=== PATIENT | male | born 1960 | race Caucasian/White ===

== ENCOUNTER 2017-04-09 18:01 | Inpatient (IN) | payer MEDICARE ==
[~2017-04-09] VITALS: Ht 185.4 cm; Wt 135.2 kg
[~2017-04-09 18:01] MED LIST: ALBU2.5V13 IH; ALBU6.7H IH; AMLO10TA80 PO; BECL8.7A6 IH; BECL8.7A6 INH; FURO40TA5 PO; HUMALOG INSULIN SUBCUT/PO; INSU3INS6 SQ; INSU3INS6 SUBCUT; LIP40 PO; LOSA100T14 PO; METF10002 PO; POTA10TA15 PO
[2017-04-09 19:00] LABS: BASOPHILS % 0.7 % (0.0-2.0); EOSINOPHILS % 0.2 % (0.0-5.0); HEMATOCRIT. 42.2 % (42.0-52.0); HEMOGLOBIN. 14.4 g/dL (14.0-18.0); LYMPHOCYTES % 10.5 % (20.0-50.0); MEAN CORPUSCULAR HEMOGLOBIN 28.1 pg (28.0-32.0); MEAN CORPUSCULAR VOLUME 82.7 fL (80.0-94.0); MEAN PLATELET VOLUME 9.6 fl (7.4-10.4); NEUTROPHILS % 82.6 % (40.0-76.0); PLATELET 173 x1000/uL (130-400); RED BLOOD CELL COUNT 5.11 mill/uL (4.7-6.1); RED CELL DISTRIBUTION WIDTH 13.9 % (11.6-14.6)
[2017-04-09 19:07] LABS: INR 0.9; PROTHROMBIN TIME 9.8 sec (9.4-11.6)
[2017-04-09 19:13] LABS: CARBON DIOXIDE 27 mEq/L (21-32); CHLORIDE 94 mEq/L (98-107)
[2017-04-09 19:17] LABS: TROPONIN I < 0.02 ng/mL (0.00-0.04)
[2017-04-09 20:14] LABS: BG BASE EXCESS -3.1 mmol/L (-2.0-2.0); BG DEOXYHEMOGLOBIN 2.6 % (0.0-5.0); BG FRACTION INSPIRED OXYGEN 28; BG HCO3 ACT 20.1 mmol/L (22.0-26.0); BG METHEMOGLOBIN 0.4 % (0.0-1.5); BG OXYGEN SATURATION 97.4 % (92.0-98.5); BG PCO2 31.4 mmHg (35.0-45.0); BG PH 7.425 (7.350-7.450); BG PO2 89.6 mmHg (75.0-100.0); BG SAMPLE SITE RIGHT RADIAL; BG TOTAL HEMOGLOBIN 15.2 g/dL (12.0-18.0); BG VENT MODE NASAL CANNULA
[2017-04-10] MEDS ORDERED: LEVOFLOXACIN 250MG PREMIX 50 ML IV ONE (00:15)
[2017-04-10] MEDS ORDERED: MORPHINE SULFATE 4 MG/ML CPJ (NOT FOR IM USE) IV ONE (00:15)
[2017-04-10] MEDS ORDERED: INSULIN REGULAR (HUMULIN R) 300UNITS/3ML SUBCUT ONE ×2 (00:15)
[2017-04-10 01:25] VITALS: BP 121/72
[2017-04-10] MEDS ORDERED: ACETAMINOPHEN 650MG/20.3ML UDC PO PRN (03:15)
[2017-04-10] MEDS ORDERED: INSULIN LISPRO 100 UNITS/ML SUBCUT SCH (03:15)
[2017-04-10] MEDS ORDERED: DEXTROSE 50% WATER 50ML SYRINGE IV PRN (03:15)
[2017-04-10] MEDS ORDERED: CLONIDINE 0.1MG TABLET PO PRN (03:15)
[2017-04-10] MEDS ORDERED: TEMAZEPAM 15MG CAPSULE PO PRN (03:15)
[2017-04-10 04:00] VITALS: BP 122/58
[2017-04-10] MEDS: ENOXAPARIN 40MG/0.4ML SYR SUBCUT SCH (04:33)
[2017-04-10] MEDS: SODIUM CHLORIDE 0.45% 1,000 ML IV SCH ×3 (04:37→21:10)
[2017-04-10] MEDS: INSULIN LISPRO 100 UNITS/ML SUBCUT SCH ×5 (04:49→21:05)
[2017-04-10] MEDS: IPRATROPIUM/ALBUTEROL 0.5-3(2.5)MG/3ML NEB HHN SCH ×5 (04:50→20:51)
[2017-04-10] MEDS: PANTOPRAZOLE 40MG DR TABLET PO SCH (07:47)
[2017-04-10] MEDS: BLOOD SUGAR DIAGNOSTIC STRIP TEST SCH ×4 (07:56→20:55)
[2017-04-10 08:00] VITALS: BP 110/56
[2017-04-10] MEDS ORDERED: ENOXAPARIN 40MG/0.4ML SYR SUBCUT SCH (09:00)
[2017-04-10 12:00] VITALS: BP 121/62
[2017-04-10] MEDS: INSULIN DETEMIR UD 100 UNITS/ML SYR SUBCUT SCH ×2 (13:26→20:59)
[2017-04-10 16:10] VITALS: BP 115/65
[2017-04-10] MEDS ORDERED: INSULIN LISPRO 100 UNITS/ML SUBCUT NR (16:15)
[2017-04-10] MEDS ORDERED: INSULIN DETEMIR UD 100 UNITS/ML SYR SUBCUT NR (16:30)
[2017-04-10 20:00] VITALS: BP 120/71
[2017-04-11] VITALS: BP 99/53
[2017-04-11] MEDS: BLOOD SUGAR DIAGNOSTIC STRIP TEST SCH ×6 (00:26→20:00)
[2017-04-11] MEDS: INSULIN LISPRO 100 UNITS/ML SUBCUT SCH ×6 (00:31→21:49)
[2017-04-11] MEDS: IPRATROPIUM/ALBUTEROL 0.5-3(2.5)MG/3ML NEB HHN SCH ×6 (01:02→20:52)
[2017-04-11 04:00] VITALS: BP 103/61
[2017-04-11] MEDS: ENOXAPARIN 40MG/0.4ML SYR SUBCUT SCH (06:34)
[2017-04-11 08:00] VITALS: BP 145/90
[2017-04-11] MEDS: PANTOPRAZOLE 40MG DR TABLET PO SCH (09:02)
[2017-04-11] MEDS: SODIUM CHLORIDE 0.45% 1,000 ML IV SCH (09:23)
[2017-04-11] MEDS: INSULIN DETEMIR UD 100 UNITS/ML SYR SUBCUT SCH ×2 (10:23→22:37)
[2017-04-11] MEDS: SODIUM CHLORIDE 0.9% 1,000 ML IV SCH (11:45)
[2017-04-11 12:00] VITALS: BP 130/77
[2017-04-11 13:34] LABS: BASOPHILS % 0.4 % (0.0-2.0); EOSINOPHILS % 1.3 % (0.0-5.0); HEMATOCRIT. 39.7 % (42.0-52.0); HEMOGLOBIN. 13.5 g/dL (14.0-18.0); LYMPHOCYTES % 31.3 % (20.0-50.0); MEAN CORPUSCULAR HEMOGLOBIN 28.2 pg (28.0-32.0); MEAN CORPUSCULAR VOLUME 82.7 fL (80.0-94.0); MEAN PLATELET VOLUME 9.3 fl (7.4-10.4); MONOCYTES % 10.8 % (2.0-8.0); NEUTROPHILS % 56.2 % (40.0-76.0); PLATELET 162 x1000/uL (130-400); RED CELL DISTRIBUTION WIDTH 13.9 % (11.6-14.6)
[2017-04-11 14:12] LABS: CARBON DIOXIDE 26 mEq/L (21-32); CHLORIDE 100 mEq/L (98-107)
[2017-04-11] MEDS: ASPIRIN 81MG TABLET PO SCH (15:56)
[2017-04-11 16:57] VITALS: BP 129/87
[2017-04-11] MEDS: PIPERACILLIN/TAZ 3.375G PREMIX 50 ML IV SCH ×2 (17:24→21:46)
[2017-04-11 20:00] VITALS: BP 133/85
[2017-04-12] VITALS: BP 130/75
[2017-04-12] MEDS: IPRATROPIUM/ALBUTEROL 0.5-3(2.5)MG/3ML NEB HHN SCH ×3 (02:14→12:08)
[2017-04-12 04:00] VITALS: BP 122/70
[2017-04-12] MEDS: ENOXAPARIN 40MG/0.4ML SYR SUBCUT SCH (05:52)
[2017-04-12] MEDS: PIPERACILLIN/TAZ 3.375G PREMIX 50 ML IV SCH (05:52)
[2017-04-12] MEDS ORDERED: BLOOD SUGAR DIAGNOSTIC STRIP TEST SCH (07:40)
[2017-04-12 08:00] VITALS: BP 124/66
[2017-04-12] MEDS ORDERED: FAMOTIDINE 20MG TABLET PO SCH (09:00)
[2017-04-12] MEDS: INSULIN LISPRO 100 UNITS/ML SUBCUT SCH ×2 (10:12→13:50)
[2017-04-12] MEDS: INSULIN DETEMIR UD 100 UNITS/ML SYR SUBCUT SCH (10:22)
[2017-04-12] MEDS: ASPIRIN 81MG TABLET PO SCH (11:07)
[2017-04-12] MEDS: SODIUM CHLORIDE 0.9% 1,000 ML IV SCH (11:08)
[2017-04-12 12:00] VITALS: BP 124/64
[2017-04-12] MEDS ORDERED: POTASSIUM CHLORIDE 20MEQ TABLET SR PO SCH (13:15)
[2017-04-12 15:01] VITALS: BP 124/66
[2017-04-13] MEDS ORDERED: ENOXAPARIN 30MG/0.3ML SYR SUBCUT SCH (09:00)
== END 2017-04-12 15:40 | disposition home or self-care (01) | DRG 637 ==
LOC: ER 18:01 → INTOOBSV 23:48 → OBSVTOIN 23:48 → 7WST 23:48 → ENRESERV 23:54
PROVIDERS: ADMIT Internal Medicine; ATTEND Internal Medicine
DX: E11.00 Type 2 diabetes mellitus with hyperosmolarity without nonketotic hyperglycemic-hyperosmolar coma (NKHHC) (principal); J18.9 Pneumonia, unspecified organism; I11.0 Hypertensive heart disease with heart failure; E11.21 Type 2 diabetes mellitus with diabetic nephropathy; I50.9 Heart failure, unspecified; J44.0 Chronic obstructive pulmonary disease with (acute) lower respiratory infection; E87.8 Other disorders of electrolyte and fluid balance, not elsewhere classified; E87.1 Hypo-osmolality and hyponatremia; J44.1 Chronic obstructive pulmonary disease with (acute) exacerbation; E66.9 Obesity, unspecified; Z79.4 Long term (current) use of insulin; J45.909 Unspecified asthma, uncomplicated; Z99.81 Dependence on supplemental oxygen; Z79.899 Other long term (current) drug therapy
CPT/HCPCS: 36415; 36600; 71010; 71250; 80053; 82010; 82375; 82805; 82962; 83036; 83880; 84443; 84484; 85025; 85610; 85651; 87040; 87086; 93005; 94640; 94660; 96365; 96372; 99285; J1650; J1815; J1956; J2543; J7030; J7620

== ENCOUNTER 2019-08-15 15:37 | Inpatient (IN) | payer MEDICARE ==
[~2019-08-15] VITALS: Ht 185.4 cm; Wt 145.1 kg
[~2019-08-15 15:37] MED LIST changes: -ALBU6.7H IH; +ALBU6.7H11 IH; -LOSA100T14 PO; +LOSA100T32 PO; +METF-416 PO; -METF10002 PO
[2019-08-15] MEDS ORDERED: METHYLPREDNISOLONE SOD SUCC 125 MG/2 ML VIAL IV STA (16:25)
[2019-08-15] MEDS ORDERED: ALBUTEROL (0.083%) 2.5MG/3ML NEB HHN STA (16:25)
[2019-08-15] MEDS ORDERED: IPRATROPIUM BROMIDE (0.02%) 0.5MG/2.5ML NEB HHN STA (16:25)
[2019-08-15 17:10] LABS: BASOPHILS % 0.4 % (0.0-2.0); EOSINOPHILS % 1.2 % (0.0-5.0); HEMATOCRIT. 37.6 % (42.0-52.0); HEMOGLOBIN. 12.7 g/dL (14.0-18.0); MEAN CORPUSCULAR HEMOGLOBIN 28.5 pg (28.0-32.0); MEAN CORPUSCULAR VOLUME 84.6 fL (80.0-94.0); MEAN PLATELET VOLUME 8.7 fl (7.4-10.4); MONOCYTES % 7.9 % (2.0-8.0); NEUTROPHILS % 66.5 % (40.0-76.0); PLATELET 207 x1000/uL (130-400); RED BLOOD CELL COUNT 4.45 mill/uL (4.7-6.1); RED CELL DISTRIBUTION WIDTH 13.5 % (11.6-14.6)
[2019-08-15 17:18] LABS: CHLORIDE 108 mEq/L (98-107)
[2019-08-15] MEDS ORDERED: NITROGLYCERIN 0.4MG TABLET SL SL PRN (17:30)
[2019-08-15] MEDS ORDERED: FUROSEMIDE 40MG/4ML VIAL IV ONE (17:30)
[2019-08-15] MEDS ORDERED: NITROGLYCERIN OINT 1GM/INCH UDPKT TD ONE (17:30)
[2019-08-15] MEDS ORDERED: ASPIRIN 81MG TABLET PO ONE (17:30)
[2019-08-16] MEDS ORDERED: INSULIN LISPRO 100 UNITS/ML SUBCUT NR (01:00)
[2019-08-16] MEDS ORDERED: CLONIDINE 0.1MG TABLET PO PRN (01:45)
[2019-08-16] MEDS ORDERED: HYDROCODONE/ACETAMINOPHEN 5/325MG TABLET PO PRN (01:45)
[2019-08-16] MEDS ORDERED: ENOXAPARIN 40MG/0.4ML SYR SUBCUT SCH (01:45)
[2019-08-16] MEDS ORDERED: LEVOFLOXACIN 500MG PREMIX 100 ML IV NR (02:30)
[2019-08-16 06:47] LABS: CREATINE KINASE 269 IU/L (39-308)
[2019-08-16 06:48] LABS: CREATINE KINASE MB FRACTION 1.3 ng/mL (0.5-3.6)
[2019-08-16 10:00] VITALS: BP 131/78
[2019-08-16] MEDS ORDERED: INSULIN GLARGINE UD 100 UNITS/ML SYR SUBCUT SCH (10:00)
[2019-08-16 12:00] VITALS: BP 136/82
[2019-08-16] MEDS ORDERED: DEXTROSE 50% WATER 50ML SYRINGE IV PRN (12:00)
[2019-08-16] MEDS ORDERED: LOSA25TA26 MT (12:07)
[2019-08-16] MEDS ORDERED: LIDOCAINE HCL/PF 1% 2ML VIAL ONE (12:11)
[2019-08-16] MEDS: ASPIRIN 81MG EC TABLET PO SCH (12:39)
[2019-08-16] MEDS: METHYLPREDNISOLONE SOD SUCC 40 MG/ML VIAL IV SCH ×2 (12:39→21:03)
[2019-08-16] MEDS: FUROSEMIDE 40MG/4ML VIAL IV SCH (12:39)
[2019-08-16] MEDS: ENOXAPARIN 40MG/0.4ML SYR SUBCUT SCH ×2 (12:40→21:04)
[2019-08-16] MEDS: POTASSIUM CHLORIDE 20MEQ TABLET SR PO SCH (12:40)
[2019-08-16] MEDS: INSULIN LISPRO 100 UNITS/ML SUBCUT SCH ×3 (13:07→21:03)
[2019-08-16] MEDS: INSULIN GLARGINE UD 100 UNITS/ML SYR SUBCUT SCH ×2 (13:08→21:46)
[2019-08-16] MEDS: IPRATROPIUM/ALBUTEROL 0.5-3(2.5)MG/3ML NEB HHN SCH ×2 (14:53→21:00)
[2019-08-16 16:00] VITALS: BP 140/88
[2019-08-16] MEDS: BLOOD SUGAR DIAGNOSTIC STRIP TEST SCH ×2 (16:45→20:53)
[2019-08-16 17:14] LABS: CREATINE KINASE 307 IU/L (39-308)
[2019-08-16 17:17] LABS: CREATINE KINASE MB FRACTION 2.1 ng/mL (0.5-3.6)
[2019-08-16] MEDS ORDERED: GUAIFENESIN 200MG/10ML SUGAR FREE UDC PO PRN (17:30)
[2019-08-16] MEDS ORDERED: LORAZEPAM 2MG/ML CPJ IV PRN (17:30)
[2019-08-16] MEDS ORDERED: DIPHENHYDRAMINE 50MG/ML VIAL IV PRN (17:30)
[2019-08-16] MEDS ORDERED: IPRATROPIUM/ALBUTEROL 0.5-3(2.5)MG/3ML NEB HHN PRN (17:30)
[2019-08-16] MEDS ORDERED: BISACODYL 10MG SUPP PR PRN (17:30)
[2019-08-16 18:07] LABS: HEMATOCRIT 40.1 % (42.0-52.0); HEMOGLOBIN 13.5 g/dL (14.0-18.0); MEAN CORPUSCULAR HEMOGLOBIN 28.4 pg (28.0-32.0); MEAN CORPUSCULAR VOLUME 84.7 fL (80.0-94.0); PLATELET 244 x1000/uL (130-400); RED BLOOD CELL COUNT 4.74 mill/uL (4.7-6.1); RED CELL DISTRIBUTION WIDTH 13.3 % (11.6-14.6)
[2019-08-16 18:09] LABS: CHLORIDE 104 mEq/L (98-107)
[2019-08-16 18:17] LABS: BG BASE EXCESS 1.5 mmol/L (-2.0-2.0); BG CARBOXYHEMOGLOBIN 1.2 % (0.5-1.5); BG DEOXYHEMOGLOBIN 5.4 % (0.0-5.0); BG FRACTION INSPIRED OXYGEN 21; BG HCO3 ACT 25.3 mmol/L (22.0-26.0); BG METHEMOGLOBIN 0.1 % (0.0-1.5); BG OXYGEN SATURATION 94.5 % (92.0-98.5); BG OXYHEMOGLOBIN 93.3 % (94.0-97.0); BG PCO2 37.3 mmHg (35.0-45.0); BG PH 7.449 (7.350-7.450); BG PO2 69.8 mmHg (75.0-100.0); BG SAMPLE SITE RIGHT RADIAL; BG VENT MODE ROOM AIR
[2019-08-16 18:28] LABS: PROTHROMBIN TIME 10.3 sec (9.6-11.0)
[2019-08-16 20:00] VITALS: BP 190/107
[2019-08-16] MEDS: BUDESONIDE 0.5MG/2ML NEB HHN SCH (21:00)
[2019-08-16] MEDS ORDERED: LEVOFLOXACIN 500MG PREMIX 100 ML IV SCH (21:00)
[2019-08-17] VITALS: BP 178/98
[2019-08-17] MEDS: IPRATROPIUM/ALBUTEROL 0.5-3(2.5)MG/3ML NEB HHN SCH ×3 (01:19→14:53)
[2019-08-17] MEDS ORDERED: LEVOFLOXACIN 500MG PREMIX 100 ML IV SCH (01:45)
[2019-08-17 02:26] LABS: CLARITY URINE CLEAR (CLEAR); COLOR URINE YELLOW (YELLOW); KETONES URINE NEGATIVE (NEGATIVE); LEUKOCYTE ESTERASE URINE NEGATIVE (NEGATIVE); NITRITE URINE NEGATIVE (NEGATIVE); OCCULT BLOOD URINE NEGATIVE (NEGATIVE); PH URINE 5.5 (4.5-8.0); PROTEIN URINE TRACE (NEGATIVE); SPECIFIC GRAVITY URINE 1.033 (1.005-1.030)
[2019-08-17 04:00] VITALS: BP 165/87
[2019-08-17] MEDS ORDERED: CLONIDINE 0.1MG TABLET PO NR (04:45)
[2019-08-17 05:45] VITALS: BP 141/80
[2019-08-17] MEDS: METHYLPREDNISOLONE SOD SUCC 40 MG/ML VIAL IV SCH (06:14)
[2019-08-17] MEDS: INSULIN LISPRO 100 UNITS/ML SUBCUT SCH ×2 (06:15→13:28)
[2019-08-17] MEDS: BLOOD SUGAR DIAGNOSTIC STRIP TEST SCH ×2 (06:20→11:45)
[2019-08-17] MEDS ORDERED: CLONIDINE 0.2MG TABLET PO PRN (07:45)
[2019-08-17 07:48] LABS: CHLORIDE 106 mEq/L (98-107)
[2019-08-17 07:57] LABS: BASOPHILS % 0.2 % (0.0-2.0); HEMATOCRIT. 35.1 % (42.0-52.0); LYMPHOCYTES % 18.5 % (20.0-50.0); MEAN CORPUSCULAR VOLUME 84.6 fL (80.0-94.0); MEAN PLATELET VOLUME 8.9 fl (7.4-10.4); MONOCYTES % 5.5 % (2.0-8.0); NEUTROPHILS % 75.8 % (40.0-76.0); PLATELET 218 x1000/uL (130-400); RED BLOOD CELL COUNT 4.15 mill/uL (4.7-6.1); RED CELL DISTRIBUTION WIDTH 13.4 % (11.6-14.6)
[2019-08-17 08:00] VITALS: BP 153/88
[2019-08-17 08:17] LABS: LDL CHOLESTEROL 128 mg/dL (5-100)
[2019-08-17 08:18] LABS: T4 FREE 1.04 ng/dL (0.76-1.46)
[2019-08-17 08:20] LABS: HDL CHOLESTEROL 39 mg/dL (40-59)
[2019-08-17] MEDS: BUDESONIDE 0.5MG/2ML NEB HHN SCH (08:41)
[2019-08-17] MEDS: FUROSEMIDE 40MG/4ML VIAL IV SCH (09:57)
[2019-08-17] MEDS: ASPIRIN 81MG EC TABLET PO SCH (09:57)
[2019-08-17] MEDS: POTASSIUM CHLORIDE 20MEQ TABLET SR PO SCH (09:57)
[2019-08-17] MEDS: ENOXAPARIN 40MG/0.4ML SYR SUBCUT SCH (09:58)
[2019-08-17] MEDS: INSULIN GLARGINE UD 100 UNITS/ML SYR SUBCUT SCH (09:59)
[2019-08-17] MEDS ORDERED: ALBU05 NEB (15:51)
[2019-08-17] MEDS ORDERED: CLON0.1T PO (15:51)
[2019-08-17] MEDS ORDERED: FURO-151 MT (15:51)
[2019-08-17] MEDS ORDERED: P20 PO (15:51)
[2019-08-17] MEDS ORDERED: LEVO500T2 MT (15:51)
[2019-08-17 16:17] VITALS: BP 155/92
== END 2019-08-17 16:55 | disposition home or self-care (01) | DRG 202 ==
LOC: ER 15:37 → 5WST 17:58 → EDBEDREQ 18:23 → EDBEDREQTM 18:23 → ENRESERV 08-16 07:41
PROVIDERS: ADMIT Internal Medicine; ATTEND Internal Medicine
DX: J45.901 Unspecified asthma with (acute) exacerbation (principal); J44.1 Chronic obstructive pulmonary disease with (acute) exacerbation; J91.8 Pleural effusion in other conditions classified elsewhere; E66.2 Morbid (severe) obesity with alveolar hypoventilation; Z68.41 Body mass index [BMI] 40.0-44.9, adult; D64.9 Anemia, unspecified; E11.65 Type 2 diabetes mellitus with hyperglycemia; E86.0 Dehydration; I34.0 Nonrheumatic mitral (valve) insufficiency; J06.9 Acute upper respiratory infection, unspecified; E87.6 Hypokalemia; I11.0 Hypertensive heart disease with heart failure; J84.10 Pulmonary fibrosis, unspecified; I50.9 Heart failure, unspecified; Z79.84 Long term (current) use of oral hypoglycemic drugs; Z79.899 Other long term (current) drug therapy; Z79.4 Long term (current) use of insulin; Z87.01 Personal history of pneumonia (recurrent)
CPT/HCPCS: 36415; 36600; 71045; 80048; 80053; 80061; 81003; 82375; 82550; 82553; 82805; 82962; 83880; 84439; 84443; 84484; 85025; 85027; 87804; 93005; 93306; 94640; 96365; 96372; 96375; 99291; J1650; J1815; J1940; J1956; J2920; J2930; J3490; J7040; J7611; J7620; J7626

== ENCOUNTER 2021-10-02 15:10 | Inpatient (IN) | payer MEDICARE, OTHER ==
[~2021-10-02] VITALS: Ht 185.4 cm; Wt 127.1 kg
[~2021-10-02 15:10] MED LIST changes: +ALBU05 NEB; -ALBU6.7H11 IH; -BECL8.7A6 INH; +CLON0.1T PO; +FURO-151 MT; -FURO40TA5 PO; -INSU3INS6 SUBCUT; +LEVO500T2 MT; -LOSA100T32 PO; +LOSA25TA26 MT; +P20 PO
[2021-10-02 16:29] LABS: BASOPHILS % 0.9 % (0.0-2.0); EOSINOPHILS % 1.8 % (0.0-5.0); HEMATOCRIT. 38.4 % (42.0-52.0); HEMOGLOBIN. 13.4 g/dL (14.0-18.0); LYMPHOCYTES % 33.8 % (20.0-50.0); MEAN CORPUSCULAR HEMOGLOBIN 29.4 pg (28.0-32.0); MEAN CORPUSCULAR VOLUME 84.2 fL (80.0-94.0); MEAN PLATELET VOLUME 8.2 fl (7.4-10.4); MONOCYTES % 9.9 % (2.0-8.0); NEUTROPHILS % 53.6 % (40.0-76.0); PLATELET 245 x1000/uL (130-400); RED BLOOD CELL COUNT 4.55 mill/uL (4.7-6.1); RED CELL DISTRIBUTION WIDTH 14.1 % (11.6-14.6)
[2021-10-02 16:31] LABS: CHLORIDE 103 mEq/L (98-107)
[2021-10-02] MEDS ORDERED: CEFTRIAXONE 1 G PREMIX 50 ML IV ONE (21:30)
[2021-10-03] MEDS ORDERED: SODIUM CHLORIDE 0.9% 1,000 ML IV ONE (00:15)
[2021-10-03] MEDS ORDERED: AMLODIPINE 5MG TABLET PO ONE (04:30)
[2021-10-03 10:00] VITALS: BP 168/94
[2021-10-03] MEDS ORDERED: MAGNESIUM/ALUMINUM HYDROXIDE/SIMETHICONE 30ML UDC PO PRN (10:30)
[2021-10-03] MEDS ORDERED: GUAIFENESIN 200MG/10ML SUGAR FREE UDC PO PRN (10:30)
[2021-10-03] MEDS ORDERED: ACETAMINOPHEN 325MG TABLET PO PRN (10:30)
[2021-10-03] MEDS ORDERED: DOCUSATE SODIUM 100MG CAPSULE PO PRN (10:30)
[2021-10-03] MEDS ORDERED: DIPHENHYDRAMINE 50MG/ML VIAL IV PRN (10:30)
[2021-10-03] MEDS ORDERED: DEXTROSE 50% WATER 50ML SYRINGE IV PRN (10:30)
[2021-10-03] MEDS ORDERED: HYDROCODONE/ACETAMINOPHEN 5/325MG TABLET PO PRN (10:30)
[2021-10-03] MEDS ORDERED: ONDANSETRON HCL 4MG/2ML INJ IV PRN (10:30)
[2021-10-03] MEDS ORDERED: NA PHOS,M-B/NA PHOS,DI-BA ENEMA 118ML PR PRN (10:30)
[2021-10-03] MEDS ORDERED: CLONIDINE 0.1MG TABLET PO PRN (10:30)
[2021-10-03] MEDS ORDERED: CEFTRIAXONE 1 G PREMIX 50 ML IV SCH (10:30)
[2021-10-03] MEDS ORDERED: LORAZEPAM 0.5MG TABLET PO PRN (10:30)
[2021-10-03] MEDS ORDERED: IPRATROPIUM/ALBUTEROL 0.5-3(2.5)MG/3ML NEB NEB PRN (10:30)
[2021-10-03] MEDS ORDERED: ACETAMINOPHEN 650MG SUPP PR PRN (10:30)
[2021-10-03] MEDS ORDERED: NALOXONE HCL 0.4MG/ML VIAL IV PRN (10:45)
[2021-10-03 10:47] VITALS: BP 168/94
[2021-10-03] MEDS ORDERED: ENOXAPARIN 40MG/0.4ML SYR SUBCUT SCH (11:00)
[2021-10-03 11:05] LABS: BG BASE EXCESS 1.8 mmol/L (-2.0-2.0); BG CARBOXYHEMOGLOBIN 0.4 % (0.5-1.5); BG DEOXYHEMOGLOBIN 3.2 % (0.0-5.0); BG FRACTION INSPIRED OXYGEN 21; BG HCO3 ACT 25.8 mmol/L (22.0-26.0); BG METHEMOGLOBIN 0.1 % (0.0-1.5); BG OXYGEN SATURATION 96.8 % (92.0-98.5); BG OXYHEMOGLOBIN 96.3 % (94.0-97.0); BG PCO2 38.1 mmHg (35.0-45.0); BG PH 7.448 (7.350-7.450); BG PO2 92.1 mmHg (75.0-100.0); BG SAMPLE SITE RIGHT RADIAL; BG TOTAL HEMOGLOBIN 13.7 g/dL (12.0-18.0); BG VENT MODE ROOM AIR
[2021-10-03] MEDS: FUROSEMIDE 40MG/4ML VIAL IV SCH (11:47)
[2021-10-03] MEDS: METHYLPREDNISOLONE SOD SUCC 40 MG/ML VIAL IV SCH ×2 (11:48→18:44)
[2021-10-03] MEDS: BLOOD SUGAR DIAGNOSTIC STRIP TEST SCH ×3 (11:50→20:07)
[2021-10-03 12:00] VITALS: BP 168/90
[2021-10-03] MEDS: INSULIN LISPRO 100 UNITS/ML SUBCUT SCH ×3 (12:54→20:19)
[2021-10-03] MEDS: AZITHROMYCIN 500 MG in DEXT 5% WATER 250 ML IV SCH (13:07)
[2021-10-03] MEDS: BUDESONIDE 0.5MG/2ML NEB HHN SCH ×2 (13:12→21:48)
[2021-10-03] MEDS: IPRATROPIUM/ALBUTEROL 0.5-3(2.5)MG/3ML NEB NEB SCH ×2 (13:12→21:34)
[2021-10-03 13:13] LABS: BASOPHILS % 0.6 % (0.0-2.0); EOSINOPHILS % 1.9 % (0.0-5.0); HEMATOCRIT. 39.7 % (42.0-52.0); HEMOGLOBIN. 13.7 g/dL (14.0-18.0); LYMPHOCYTES % 32.6 % (20.0-50.0); MEAN CORPUSCULAR HEMOGLOBIN 29.1 pg (28.0-32.0); MEAN CORPUSCULAR VOLUME 84.6 fL (80.0-94.0); MEAN PLATELET VOLUME 8.3 fl (7.4-10.4); MONOCYTES % 8.4 % (2.0-8.0); NEUTROPHILS % 56.5 % (40.0-76.0); PLATELET 235 x1000/uL (130-400); RED BLOOD CELL COUNT 4.69 mill/uL (4.7-6.1); RED CELL DISTRIBUTION WIDTH 13.8 % (11.6-14.6)
[2021-10-03 13:23] LABS: CHLORIDE 103 mEq/L (98-107); PROTHROMBIN TIME 10.4 sec (9.6-11.0)
[2021-10-03] MEDS ORDERED: INSULIN GLARGINE UD 100 UNITS/ML SYR SUBCUT NR (14:00)
[2021-10-03] MEDS: LOSARTAN POTASSIUM 25 MG TABLET PO SCH (14:33)
[2021-10-03] MEDS: CEFTRIAXONE 1,000 MG in DEXTROSE 5% WATER 50 ML IV SCH (14:33)
[2021-10-03 14:51] LABS: CLARITY URINE CLEAR (CLEAR); COLOR URINE YELLOW (YELLOW); KETONES URINE 3+ (NEGATIVE); LEUKOCYTE ESTERASE URINE NEGATIVE (NEGATIVE); NITRITE URINE NEGATIVE (NEGATIVE); OCCULT BLOOD URINE NEGATIVE (NEGATIVE); PH URINE 6.5 (4.5-8.0); PROTEIN URINE TRACE (NEGATIVE); SPECIFIC GRAVITY URINE 1.035 (1.005-1.030)
[2021-10-03 16:00] VITALS: BP 157/88
[2021-10-03 16:19] LABS: *AMPHETAMINES SCREEN URINE NEGATIVE (NEGATIVE); *BARBITURATES SCREEN URINE NEGATIVE (NEGATIVE); *BENZODIAZEPINES SCREEN URINE NEGATIVE (NEGATIVE); *COCAINE SCREEN URINE NEGATIVE (NEGATIVE); METHADONE URINE SCREEN NEGATIVE (NEGATIVE); OPIATES URINE SCREEN NEGATIVE (NEGATIVE)
[2021-10-03 16:20] LABS: CANNABINOID URINE SCREEN NEGATIVE (NEGATIVE); PHENCYCLIDINE URINE SCREEN NEGATIVE (NEGATIVE)
[2021-10-03 16:47] LABS: CREATINE KINASE 211 IU/L (39-308)
[2021-10-03 16:49] LABS: CREATINE KINASE MB FRACTION 1.2 ng/mL (0.5-3.6)
[2021-10-03] MEDS ORDERED: IOHEXOL-350 100 ML BOTTLE ONE (18:20)
[2021-10-03 20:00] VITALS: BP 149/90
[2021-10-03] MEDS: ENOXAPARIN 30MG/0.3ML SYR SUBCUT SCH (20:17)
[2021-10-03] MEDS ORDERED: FAMOTIDINE 20MG TABLET PO SCH (21:00)
[2021-10-03] MEDS ORDERED: INSULIN GLARGINE UD 100 UNITS/ML SYR SUBCUT SCH (22:00)
[2021-10-04] VITALS: BP 138/80
[2021-10-04 00:43] LABS: CREATINE KINASE 182 IU/L (39-308)
[2021-10-04 00:44] LABS: CREATINE KINASE MB FRACTION 1.2 ng/mL (0.5-3.6)
[2021-10-04] MEDS: METHYLPREDNISOLONE SOD SUCC 40 MG/ML VIAL IV SCH ×2 (02:17→11:01)
[2021-10-04] MEDS: IPRATROPIUM/ALBUTEROL 0.5-3(2.5)MG/3ML NEB NEB SCH ×3 (02:18→14:35)
[2021-10-04 04:00] VITALS: BP 154/92
[2021-10-04] MEDS: BLOOD SUGAR DIAGNOSTIC STRIP TEST SCH ×2 (06:12→11:45)
[2021-10-04] MEDS: INSULIN LISPRO 100 UNITS/ML SUBCUT SCH ×2 (06:31→12:32)
[2021-10-04 08:00] VITALS: BP 153/55
[2021-10-04 08:27] LABS: BASOPHILS % 0.2 % (0.0-2.0); HEMATOCRIT. 36.4 % (42.0-52.0); HEMOGLOBIN. 12.8 g/dL (14.0-18.0); LYMPHOCYTES % 12.9 % (20.0-50.0); MEAN CORPUSCULAR HEMOGLOBIN 29.4 pg (28.0-32.0); MEAN CORPUSCULAR VOLUME 83.6 fL (80.0-94.0); MEAN PLATELET VOLUME 8.6 fl (7.4-10.4); MONOCYTES % 2.8 % (2.0-8.0); NEUTROPHILS % 84.1 % (40.0-76.0); PLATELET 240 x1000/uL (130-400); RED BLOOD CELL COUNT 4.36 mill/uL (4.7-6.1); RED CELL DISTRIBUTION WIDTH 14.3 % (11.6-14.6)
[2021-10-04 08:35] LABS: CHLORIDE 104 mEq/L (98-107)
[2021-10-04 08:50] LABS: T4 FREE 1.17 ng/dL (0.76-1.46)
[2021-10-04 08:55] LABS: HDL CHOLESTEROL 47 mg/dL (40-59)
[2021-10-04 08:56] LABS: LDL CHOLESTEROL 61 mg/dL (5-100)
[2021-10-04] MEDS: FUROSEMIDE 40MG/4ML VIAL IV SCH (09:28)
[2021-10-04] MEDS: ENOXAPARIN 30MG/0.3ML SYR SUBCUT SCH (09:29)
[2021-10-04] MEDS: LOSARTAN POTASSIUM 25 MG TABLET PO SCH (09:30)
[2021-10-04] MEDS ORDERED: INSULIN LISPRO 100 UNITS/ML SUBCUT NR (10:15)
[2021-10-04 12:00] VITALS: BP 152/87
[2021-10-04] MEDS: AZITHROMYCIN 500 MG in DEXT 5% WATER 250 ML IV SCH (12:30)
[2021-10-04] MEDS ORDERED: IPRA3AMP9 NEB (14:55)
[2021-10-04] MEDS ORDERED: INSU100I28 SQ (14:55)
[2021-10-04] MEDS ORDERED: BLOO-1465 MT (14:55)
[2021-10-04] MEDS ORDERED: LANC1COM2 MC (14:55)
[2021-10-04] MEDS ORDERED: P20 PO (14:55)
[2021-10-04] MEDS ORDERED: FLUT1AER INH (14:55)
[2021-10-04] MEDS: CEFTRIAXONE 1,000 MG in DEXTROSE 5% WATER 50 ML IV SCH (15:09)
[2021-10-04 16:00] VITALS: BP 148/89
[2021-10-04 16:12] VITALS: BP 148/89
[2021-10-04] MEDS ORDERED: INSULIN GLARGINE UD 100 UNITS/ML SYR SUBCUT SCH (22:00)
== END 2021-10-04 16:55 | disposition home or self-care (01) | DRG 193 ==
LOC: ER 15:10 → MICUSO 10-03 03:53 → 5WST 10-03 06:34
PROVIDERS: ADMIT Internal Medicine; ATTEND Internal Medicine
DX: J18.9 Pneumonia, unspecified organism (principal); J80 Acute respiratory distress syndrome; L03.115 Cellulitis of right lower limb; J44.1 Chronic obstructive pulmonary disease with (acute) exacerbation; E66.2 Morbid (severe) obesity with alveolar hypoventilation; J44.0 Chronic obstructive pulmonary disease with (acute) lower respiratory infection; L03.116 Cellulitis of left lower limb; D64.9 Anemia, unspecified; E11.65 Type 2 diabetes mellitus with hyperglycemia; E11.51 Type 2 diabetes mellitus with diabetic peripheral angiopathy without gangrene; I10 Essential (primary) hypertension; Z20.822 Contact with and (suspected) exposure to COVID-19; Z79.4 Long term (current) use of insulin; Z79.51 Long term (current) use of inhaled steroids; Z79.84 Long term (current) use of oral hypoglycemic drugs; Z79.899 Other long term (current) drug therapy; Z68.37 Body mass index [BMI] 37.0-37.9, adult
CPT/HCPCS: 36415; 36600; 71045; 71275; 80053; 80061; 80305; 81003; 82375; 82550; 82553; 82805; 82962; 83036; 83880; 84439; 84443; 84484; 85025; 87426; 93005; 93306; 93923; 93970; 94640; 97161; 99285; J0456; J0696; J1650; J1815; J1940; J2920; J7030; J7040; J7060; J7626; Q9967